=== PATIENT | female | born 1990 | race Caucasian/White ===

== ENCOUNTER 2017-06-27 02:20 | Emergency (ER) | payer BC ==
[~2017-06-27] VITALS: Ht 162.6 cm; Wt 49.9 kg
[2017-06-27] MEDS ORDERED: Ketorolac 30mg Inj IV ONE (02:45)
--- NOTE | 2017-06-27 02:47 | Emergency Room Report ---
History of Present Illness General Chief Complaint: Abdominal Pain Source: Patient Present Illness HPI Is a 26-year-old female with history of anxiety. She presents with chief complaint abdominal pain with vomiting and diarrhea. Onset around 10 PM. Multiple episode vomiting and diarrhea. Now was cramping and chest tightness. No fever chills. No sick contact. Pain is crampy in nature. 9 out of 10. Vomiting is nonbloody And nonbilious. Diarrhea is watery. Allergies: Coded Allergies: No Known Allergies (Unverified , 06/27/17) Patient History Past Medical History: see triage record, old chart reviewed, psych hx Past Surgical History: none Pertinent Family History: none Social History: Denies: smoking Last Menstrual Period: 2 weeks ago Now: No Immunizations: other Reviewed Nursing Documentation: PMH: Agreed; PSxH: Agreed Nursing Documentation-PMH Past Medical History: No Stated History Review of Systems Eye: Denies: eye pain, blurred vision ENT: Denies: ear pain, nose congestion, throat swelling Respiratory: Denies: cough, shortness of breath Cardiovascular: Denies: chest pain, palpitations Gastrointestinal: Reports: abdominal pain, diarrhea, nausea, vomiting Musculoskeletal: Denies: back pain, joint pain Skin: Denies: rash Neurological: Denies: headache, numbness Endocrine: Denies: increased thirst, increased urine Hematologic/Lymphatic: Denies: easy bruising All Other Systems: negative except mentioned in HPI Physical Exam Vital Signs Date Time Temp Pulse Resp B/P (MAP) Pulse Ox O2 Delivery O2 Flow Rate FiO2 06/27/17 02:28 98.0 105 16 130/62 99 Room Air 98.1 vitals unremarkable Sp02 EP Interpretation: reviewed, normal General Appearance: well appearing, no apparent distress, alert Head: normocephalic, atraumatic Eyes: bilateral eye PERRL, bilateral eye EOMI ENT: hearing grossly normal, normal pharynx Neck: full range of motion, supple, no meningismus Respiratory: chest non-tender, lungs clear, normal breath sounds Cardiovascular #1: regular rate, rhythm, no murmur Gastrointestinal: no mass, no organomegaly, no bruit, non-distended, tenderness - mild, diffuse, decreased bowel sounds Musculoskeletal: back normal, gait/station normal, normal range of motion Psychiatric: mood/affect normal Skin: warm/dry Medical Decision Making Diagnostic Impression: Primary Impression: Gastroenteritis Additional Impression: UTI (urinary tract infection) Qualified Codes: N30.00 - Acute cystitis without hematuria ER Course Patient with nausea vomiting and diarrhea and abdominal pain. CT scan showed evidence of gastroenteritis. Her white count is elevated but this is normal for her. She said that her white count only one around 15,000. She seen inspector tool and workup was negative for neoplastic process. She felt better now. We will discharge home. Lab Results Impression labs with elevated WBC CT/MRI/US Diagnostic Results CT/MRI/US Diagnostic Results : Imaging Test Ordered: CT abdomen and pelvis Impression read by radiologist. Gastroenteritis. Last Vital Signs Date Time Temp Pulse Resp B/P (MAP) Pulse Ox O2 Delivery O2 Flow Rate FiO2 06/27/17 02:28 98.0 105 16 130/62 99 Room Air 98.1 Status: improved Disposition: HOME, SELF-CARE Condition: Stable Scripts Ondansetron (Zofran) 4 Mg Tablet 4 MG ORAL Q6H PRN for Nausea & Vomiting, #10 TAB 0 Refills Prov: WAYNE UMANZOR M.D. 06/27/17 Nitrofurantoin Monohyd/M-Cryst (Nitrofurantoin Howard-Mcr 100 mg) 100 Mg Capsule 100 MG ORAL Q12H, #14 CAP Prov: WAYNE UMANZOR M.D. 06/27/17 Additional Instructions: Rest. Increase fluids. Advance diet as tolerated. Follow-up with your DrCory in 2 to 3 days if not better. Return if symptom worsen. WAYNE UMANZOR M.D. June 27, 2017 02:47
[2017-06-27 03:03] LABS: HEMATOCRIT 40.4 % (37.0-47.0); HEMOGLOBIN 13.8 G/DL (12.0-16.0); MEAN CORPUSCULAR VOLUME 90 FL (80-99); PLATELET COUNT 281 K/UL (150-450); RED BLOOD COUNT 4.47 M/UL (4.20-5.40); RED CELL DISTRIBUTION WIDTH 10.9 % (11.6-14.8); WHITE BLOOD COUNT 20.2 K/UL (4.8-10.8)
[2017-06-27 03:14] LABS: ANION GAP 11 mmol/L (5-15); BLOOD UREA NITROGEN 17 mg/dL (7-18); CALCIUM 8.8 MG/DL (8.5-10.1); CARBON DIOXIDE 25 MMOL/L (21-32); CHLORIDE 102 MMOL/L (98-107); CREATININE 1.1 MG/DL (0.55-1.30); POTASSIUM 3.9 MMOL/L (3.5-5.1); SODIUM 138 MMOL/L (136-145)
[2017-06-27 03:15] LABS: APPEARANCE,URINE SLIGHTLY CLOUDY; COLOR,URINE YELLOW
[2017-06-27] MEDS ORDERED: Isovue-300 100ml vial INJ PRN (03:15)
[2017-06-27 03:16] LABS: BILIRUBIN, URINE NEGATIVE (NEGATIVE); GLUCOSE, URINE (UA) NEGATIVE (NEGATIVE); KETONES,URINE 1+ (NEGATIVE); LEUKOCYTE ESTERASE ,URINE 2+ (NEGATIVE); NITRITE,URINE NEGATIVE (NEGATIVE); PH,URINE 6 (4.5-8.0); PROTEIN,URINE 1+ (NEGATIVE); UROBILINOGEN,URINE NORMAL MG/DL (0.0-1.0)
[2017-06-27 03:19] LABS: ALANINE AMINOTRANSFERASE 20 U/L (12-78); ALBUMIN 3.8 G/DL (3.4-5.0); ALBUMIN/GLOBULIN RATIO 1.1 (1.0-2.7); ALKALINE PHOSPHATASE 44 U/L (46-116); ASPARTATE AMINO TRANSFERASE 16 U/L (15-37); BILIRUBIN,TOTAL 0.7 MG/DL (0.2-1.0)
[2017-06-27 04:12] VITALS: BP 105/65
[2017-06-27] MEDS ORDERED: cefTRIAXone 1 GM in NS 55 ML IVPB ONE (04:15)
[2017-06-27] MEDS ORDERED: ZOFRAN4 MG ORAL (04:48)
[2017-06-27] MEDS ORDERED: MACROBID100 MG ORAL (04:48)
[2017-06-27 04:57] VITALS: BP 105/65
--- NOTE | 2017-06-27 09:44 | Diagnostic Imaging Report ---
Indication: Pain Technique: CT of the abdomen and pelvis utilizing automated exposure control with intravenous contrast. Venous scanning performed. Axial, sagittal and coronal reformats presented. CT dose: Total DLP 495.05 mGycm; CTDI vol 10.21 mGy Comparison: None Findings: Lung bases are clear. Heart size within normal limits. No pericardial effusion. Breast implants partially visualized. Liver, gallbladder, spleen, adrenal glands, and pancreas grossly unremarkable. Kidneys enhance symmetrically. No urinary tract stone or hydronephrosis noted. Bladder unremarkable. Uterus and adnexa are grossly unremarkable for patient's age. Limited evaluation of the gastrointestinal tract due to lack of enteric contrast and paucity of intra-abdominal fat. There is no free intraperitoneal air. There is trace fluid in the pelvis. There are numerous fluid filled, non-pathologically dilated small bowel loops. There is no obvious bowel wall thickening or inflammatory change in the mesentery. No pathologically enlarged lymphadenopathy. Abdominal aorta is normal in caliber. No acute osseous abnormality seen. There is S-shaped scoliosis of the spine. IMPRESSION: Limited evaluation of the gastrointestinal tract due to paucity of intra-abdominal fat and lack of enteric contrast within these limitations: Numerous fluid-filled small bowel loops,a nonspecific finding which can suggest mild ileus or possible gastroenteritis in the appropriate clinical setting. No definite evidence of small bowel obstruction. No obvious abnormal bowel wall thickening or mesenteric fat stranding. No pneumoperitoneum. Additional findings as above. This corresponds with the statrad preliminary report. The CT scanner at [facility] is accredited by the [employer] and the scans are performed using protocols designed to limit radiation exposure to as low as reasonably achievable to attain images of sufficient resolution adequate for diagnostic evaluation.
== END 2017-06-27 05:00 | disposition home or self-care (01) ==
LOC: EMR 02:48
DX: K52.9 Noninfective gastroenteritis and colitis, unspecified (principal); N30.00 Acute cystitis without hematuria; R10.9 Unspecified abdominal pain; F41.9 Anxiety disorder, unspecified
CPT/HCPCS: 36415; 74177; 80053; 81003; 81025; 83690; 85025; 87086; 96374; 96375; 99284; J0696; J1885; J2405; Q9967